=== PATIENT | male | born 1985 | race Hispanic/Latino ===

== ENCOUNTER 2018-05-10 15:24 | Emergency (ER) | payer OTHER ==
[2018-05-10] MEDS ORDERED: TETANUS & DIPHTHERIA TOX,ADULT 0.5 ML VIAL ONE (16:06)
--- NOTE | 2018-05-10 17:01 | RAD REPORT ---
EXAM DESCRIPTION: RAD - Hand Right 3 View - 05/10/2018 4:22 pm CLINICAL HISTORY: Fall, thumb injury COMPARISON: None. FINDINGS: First distal phalanx is dislocated PIP joint. There is dorsal dislocation and overlap. No fracture is seen. First MCP joint is unremarkable. The second- fifth metacarpals and phalanges show n o suspicious finding. No foreign body or other soft tissue abnormality. IMPRESSION: Dislocation of the right first digit distal phalanx.
[2018-05-10] MEDS ORDERED: IBUPROFEN 400 MG TAB ONE (17:10)
[2018-05-10] MEDS ORDERED: HYDROCODONE/APAP 7.5/325 MG TAB ONE (17:10)
[2018-05-10] MEDS ORDERED: LIDOCAINE 1% MPF 5 ML VIAL ONE (17:15)
[2018-05-10] MEDS ORDERED: BUPIVACAINE 0.5% PF 10 ML VIAL ONE (17:16)
--- NOTE | 2018-05-10 18:37 | RAD REPORT ---
EXAM DESCRIPTION: RAD - Hand Right 2 View - 05/10/2018 6:06 pm FINDINGS: Multiple views of right hand were obtained following reduction maneuvers. First distal pha lanx is been reduced to anatomic position. No associated fracture.
--- NOTE | 2018-05-10 18:39 | EDPHYS ---
Physician Documentation [facility] Name: Cornelio Venegas Age: 32 yrs Sex: Male : 1985 Arrival Date: 05/10/2018 Time: 15:25 Bed 28 Private MD: ED Physician Lonnie Treadwell HPI: 05/10 16:00 This 32 yrs old Male presents to ER via Ambulatory with complaints of Thumb cp Injury. 16:00 The patient or guardian reports decreased range of motion, deformity, injury. cp 16:00 Context: resulted from a fall. Onset: The symptoms/episode began/occurred last night. cp Associated signs and symptoms: Pertinent positives: decreased sensation distally, Pertinent negatives: cyanosis distally. Severity of symptoms: in the emergency department the symptoms are unchanged, despite home interventions. 16:00 The complaints affect the right thumb. cp Historical: - Allergies: 15:44 No Known Allergies; la1 - PMHx: 15:44 None; la1 - Immunization history:: Adult Immunizations up to date. - Social history:: Smoking status: Patient/guardian denies using tobacco. - Ebola Screening: : No symptoms or risks identified at this time. ROS: 16:05 MS/extremity: Positive for injury or acute deformity, decreased range of motion, pain, cp of the left thumb. 16:05 Constitutional: Negative for body aches, chills, fever, poor PO intake. cp 16:05 Respiratory: Negative for cough, shortness of breath, wheezing. 16:05 Abdomen/GI: Negative for abdominal pain, nausea, vomiting, and diarrhea. 16:05 Skin: Positive for abrasion(s), of the face and left hand. 16:05 Neuro: Negative for altered mental status, headache. 16:05 All other systems are negative. Exam: 16:15 Constitutional: The patient appears in no acute distress, alert, awake, non-toxic, well cp developed, well nourished. 16:15 Head/face: Noted is abrasion(s), that are moderate, of the forehead and right cheek, cp swelling, that is mild. 16:15 Eyes: Periorbital structures: swelling, that is mild, on the , Pupils: equal, round, and reactive to light and accomodation, Extraocular movements: intact throughout, Conjunctiva: normal, no exudate, no injection. 16:15 ENT: External ear(s): are unremarkable, Nose: is normal, Mouth: is normal, Posterior pharynx: Airway: no evidence of obstruction, patent, Voice: is normal. 16:15 Neck: ROM/movement: is normal, is supple, without pain, no range of motions limitations, no nuchal rigidity. 16:15 Chest/axilla: Inspection: normal. 16:15 Cardiovascular: Rate: tachycardic. 16:15 Respiratory: the patient does not display signs of respiratory distress, Respirations: normal, no retractions, no splinting, no tachypnea. 16:15 Musculoskeletal/extremity: Extremities: grossly normal except: noted in the right thumb distal interphalangeal joint: deformity, pain, swelling, tenderness, Perfusion: the extremity is normally perfused throughout, decreased sensation. 16:15 Skin: injury, abrasion(s), small abrasion noted, of the sheppard aspect right thumb. Vital Signs: 15:44 BP 155 / 105; Pulse 111; Resp 18; Temp 97.2; Pulse Ox 98% on R/A; Weight 99.79 kg; la1 Height 5 ft. 10 in. (177.80 cm); 17:00 BP 135 / 78; Pulse 80; Resp 18; Pulse Ox 100% on R/A; Pain 2/10; mg2 18:49 BP 145 / 78; Pulse 80; Resp 18; Pulse Ox 100% on R/A; Pain 0/10; mg2 15:44 Body Mass Index 31.57 (99.79 kg, 177.80 cm) la1 Procedures: 18:40 Reduction: of the right thumb distal interphalangeal joint, using manipulation, Patient cp tolerated well. Post reduction film - reveals normal alignment. digital block performed using 8 ccs of 50/50 mixture 1% lidocaine w/o epi and 0.5% marcaine w/o epi. 18:45 Splinting: Splint applied to right thumb using Orthoglass splint, thumb spica type. cp applied by tech. Examined by me, post splint application: neurovascular intact, Patient tolerated well. MDM: 15:45 Patient medically screened. cp 18:37 Data reviewed: vital signs, nurses notes, radiologic studies, plain films. cp 18:37 Test interpretation: by ED physician or midlevel provider: plain radiologic studies. cp 05/10 15:52 Order name: XRAY Hand RIGHT 3 View; Complete Time: 18:40 05/10 18:40 Interpretation: Report reviewed. 05/10 17:17 Order name: XRBONIFACIO Hand RIGHT 2 View; Complete Time: 18:40 05/10 18:22 Order name: Thumb Spica Splint: orthoglass; Complete Time: 18:44 cp Administered Medications: 15:58 Drug: Tetanus-Diphtheria Toxoid Adult 0.5 ml {Store Receiving Specialist: [employer]. Exp: mg2 03/28/2020. Lot #: [id number]. } Route: IM; Site: left deltoid; 17:14 Follow up: Response: No adverse reaction mg2 16:30 Drug: Lidocaine (1 %) 5 mg {Note: Administered by PA. Anais} Route: Infiltration; ca1 18:45 Follow up: Response: No adverse reaction; Marked relief of symptoms mg2 16:30 Drug: Marcaine (0.5 %) 5 ml {Note: administered by PA. Anais} Volume: 10 ml; ca1 Route: Infiltration; 18:44 Follow up: Response: No adverse reaction; Marked relief of symptoms mg2 17:01 Drug: Hydrocodone-Acetaminophen (7.5 mg-325 mg) 1 tabs Route: PO; ca1 18:44 Follow up: Response: No adverse reaction; Marked relief of symptoms mg2 17:01 Drug: Ibuprofen 800 mg Route: PO; ca1 18:44 Follow up: Response: No adverse reaction; Marked relief of symptoms mg2 Disposition: 19:00 Chart complete. 05/11 11:57 Co-signature as Attending Physician, Lonnie Treadwell MD. Disposition: 05/10/18 18:38 Discharged to Home. Impression: Dislocation of distal interphalangeal joint of right thumb. - Condition is Stable. - Discharge Instructions: Finger or Thumb Dislocation. - Prescriptions for Ibuprofen 800 mg Oral Tablet - take 1 tablet by ORAL route every 8 hours As needed take with food; 30 tablet. Tylenol- Codeine #3 300-30 mg Oral Tablet - take 2 tablets by ORAL route every 6 hours As needed; 15 tablet. - Medication Reconciliation Form, Thank You Letter, Antibiotic Education, Prescription Opioid Use form. - Follow up: Shayne Morris MD; When: 2 - 3 days; Reason: Recheck today's complaints. - Problem is new. - Symptoms have improved. Signatures: Dispatcher [employer] EDMS Yash Claros RN RN la1 Calvin Chung PA PA cp Lonnie Treadwell MD MD gs Kalyan Nunez RN RN mg2 Heather Jin RN RN ca1 Corrections: (The following items were deleted from the chart) 05/10 17:18 16:00 The complaints affect the left thumb, cp cp 18:50 18:38 05/10/2018 18:38 Discharged to Home. Impression: Dislocation of distal mg2 interphalangeal joint of right thumb. Condition is Stable. Forms are Medication Reconciliation Form, Thank You Letter, Antibiotic Education, Prescription Opioid Use. Follow up: Shayne Morris; When: 2 - 3 days; Reason: Recheck today's complaints. Problem is new. Symptoms have improved. cp
--- NOTE | 2018-05-10 18:39 | ER ---
Nurse's Notes [facility] Name: Cornelio Venegas Age: 32 yrs Sex: Male : 1985 Arrival Date: 05/10/2018 Time: 15:25 Bed 28 Private MD: Diagnosis: Dislocation of distal interphalangeal joint of right thumb Presentation: 05/10 15:43 Presenting complaint: Patient states: I fell last night and injured my right thumb. Pt la1 denies LOC. Transition of care: patient was not received from another setting of care. Onset of symptoms was May 10, 2018. Risk Assessment: Do you want to hurt yourself or someone else? Patient reports no desire to harm self or others. Initial Sepsis Screen: Does the patient meet any 2 criteria? No. Patient's initial sepsis screen is negative. Does the patient have a suspected source of infection? No. Patient's initial sepsis screen is negative. Care prior to arrival: None. 15:43 Method Of Arrival: Ambulatory la1 15:43 Acuity: KELLEE 4 la1 Triage Assessment: 18:50 Injury Description: dislocation'. mg2 Historical: - Allergies: 15:44 No Known Allergies; la1 - PMHx: 15:44 None; la1 - Immunization history:: Adult Immunizations up to date. - Social history:: Smoking status: Patient/guardian denies using tobacco. - Ebola Screening: : No symptoms or risks identified at this time. Screenin:02 Abuse screen: Denies threats or abuse. Denies injuries from another. Nutritional mg2 screening: No deficits noted. Tuberculosis screening: No symptoms or risk factors identified. Fall Risk None identified. Assessment: 16:00 General: Appears in no apparent distress. comfortable, Behavior is calm, cooperative. mg2 Pain: Complains of pain in right thumb Pain does not radiate. Pain currently is 2 out of 10 on a pain scale. Quality of pain is described as aching, Pain began suddenly, since last night. Neuro: Level of Consciousness is awake, alert, obeys commands, Oriented to person, place, time, situation. Cardiovascular: Capillary refill < 3 seconds Patient's skin is warm and dry. Respiratory: Airway is patent Respiratory effort is even, unlabored, Respiratory pattern is regular, symmetrical. GI: No deficits noted. : No deficits noted. EENT: No deficits noted. Derm: Skin is intact, is healthy with good turgor, Skin is pink, warm \T\ dry. normal. Musculoskeletal: Circulation, motion, and sensation intact. Capillary refill < 3 seconds, Reports pain in right thumb. Vital Signs: 15:44 BP 155 / 105; Pulse 111; Resp 18; Temp 97.2; Pulse Ox 98% on R/A; Weight 99.79 kg; la1 Height 5 ft. 10 in. (177.80 cm); 17:00 BP 135 / 78; Pulse 80; Resp 18; Pulse Ox 100% on R/A; Pain 2/10; mg2 18:49 BP 145 / 78; Pulse 80; Resp 18; Pulse Ox 100% on R/A; Pain 0/10; mg2 15:44 Body Mass Index 31.57 (99.79 kg, 177.80 cm) la1 ED Course: 15:25 Patient arrived in ED. as 15:44 Triage completed. la1 15:45 Calvin Chung PA is PHCP. cp 15:45 Lonnie Treadwell MD is Attending Physician. cp 15:45 Arm band placed on left wrist. la1 15:46 Kalyan Nunez, YOLANDA is Primary Nurse. mg2 16:03 Patient has correct armband on for positive identification. Door closed. mg2 16:03 No provider procedures requiring assistance completed. mg2 16:21 X-ray completed. Portable x-ray completed in exam room. Patient tolerated procedure sg4 well. 16:23 XRAY Hand RIGHT 3 View In Process Unspecified. EDMS 17:15 Patient did not have IV access during this emergency room visit. mg2 17:18 Assist provider with nerve block (digital) of dorsal aspect of proximal phalanx of mg2 right thumb and right thumbnail Set up for procedure. Performed by Calvin DUMAS Patient tolerated well. Assist provider with reduction of right right thumb using manipulation, Set up for procedure. Performed by Calvin DUMAS Patient tolerated well. 18:06 XRAY Hand RIGHT 2 View In Process Unspecified. EDMS 18:37 Shayne Morris MD is Referral Physician. cp 18:48 Orthoglass splint: Thumb spica splint applied on right forearm. by VIRIDIANA Smith tech. mg2 Administered Medications: 15:58 Drug: Tetanus-Diphtheria Toxoid Adult 0.5 ml {Toggler: [employer]. Exp: mg2 03/28/2020. Lot #: [id number]. } Route: IM; Site: left deltoid; 17:14 Follow up: Response: No adverse reaction mg2 16:30 Drug: Lidocaine (1 %) 5 mg {Note: Administered by PA. Anais} Route: Infiltration; ca1 18:45 Follow up: Response: No adverse reaction; Marked relief of symptoms mg2 16:30 Drug: Marcaine (0.5 %) 5 ml {Note: administered by PA. Anais} Volume: 10 ml; ca1 Route: Infiltration; 18:44 Follow up: Response: No adverse reaction; Marked relief of symptoms mg2 17:01 Drug: Hydrocodone-Acetaminophen (7.5 mg-325 mg) 1 tabs Route: PO; ca1 18:44 Follow up: Response: No adverse reaction; Marked relief of symptoms mg2 17:01 Drug: Ibuprofen 800 mg Route: PO; ca1 18:44 Follow up: Response: No adverse reaction; Marked relief of symptoms mg2 Outcome: 18:38 Discharge ordered by MD. cp 18:49 Discharged to home ambulatory, with family. mg2 18:49 Condition: stable 18:49 Discharge instructions given to patient, family, Instructed on discharge instructions, follow up and referral plans. medication usage, Demonstrated understanding of instructions, follow-up care, medications, Prescriptions given X 2. 18:50 Patient left the ED. mg2 Signatures: Dispatcher [employer] EDMS Rivka Genao Lee RN RN la1 Calvin Chung PA PA cp Gardose, Michele, RN RN mg2 Luisa Krishna sg4 Heather Jin RN RN ca1
== END 2018-05-10 18:50 | disposition home or self-care (01) ==
LOC: ER 15:24
PROC: 0RSWXZZ Reposition Right Finger Phalangeal Joint, External Approach (ICD-10-PCS; principal; 2018-05-10)
PROC: 2W3JX1Z Immobilization of Right Finger using Splint (ICD-10-PCS; 2018-05-10)
DX: S63.124A Dislocation of interphalangeal joint of right thumb, initial encounter (principal); W19.XXXA Unspecified fall, initial encounter; Y93.9 Activity, unspecified; Y92.9 Unspecified place or not applicable; Z23 Encounter for immunization
CPT/HCPCS: 90714; 99284